=== PATIENT | male | born 1955 | race Hispanic/Latino ===

== ENCOUNTER → 2018-11-28 | Outpatient (CLI) | payer MEDICAID | END | disposition home or self-care (01) | LOC: RAH 09:40 | PROVIDERS: ATTEND Family Medicine | DX: N28.1 Cyst of kidney, acquired (principal); I70.0 Atherosclerosis of aorta | CPT/HCPCS: 76700 ==

== ENCOUNTER → 2021-04-15 | Outpatient (CLI) | payer MEDICAID | END | disposition home or self-care (01) | LOC: RAH 09:48 | PROVIDERS: ATTEND Family Medicine | DX: R91.8 Other nonspecific abnormal finding of lung field (principal); Q25.46 Tortuous aortic arch | CPT/HCPCS: 71046 ==

== ENCOUNTER 2022-01-20 08:00 | Emergency (ER) | payer MEDICAID ==
[~2022-01-20] VITALS: Ht 172.7 cm; Wt 83.5 kg
[2022-01-20 08:07] VITALS: BP 160/97
[2022-01-20] MEDS ORDERED: NAPR-1023 PO (10:24)
[2022-01-20] MEDS ORDERED: KETOROLAC 30MG VIAL (30MG/ML) ONE (10:28)
[2022-01-20] MEDS ORDERED: KETOROLAC 30MG VIAL (30MG/ML) IM ONE (10:30)
== END 2022-01-20 10:39 | disposition home or self-care (01) ==
LOC: EDH 08:00
DX: S22.32XA Fracture of one rib, left side, initial encounter for closed fracture (principal); F41.9 Anxiety disorder, unspecified; F32.A Depression, unspecified; I10 Essential (primary) hypertension; W18.09XA Striking against other object with subsequent fall, initial encounter; Y93.89 Activity, other specified; Y92.89 Other specified places as the place of occurrence of the external cause; Y99.8 Other external cause status
CPT/HCPCS: 71101; 76705; 93005; 96372; 99284; J1885

== ENCOUNTER 2022-03-16 13:08 | Emergency (ER) | payer OTHER, MEDICARE ==
[~2022-03-16] VITALS: Ht 180.3 cm; Wt 78.0 kg
[~2022-03-16 13:08] MED LIST: NAPR-1023 PO
[2022-03-16 13:48] VITALS: BP 150/85
[2022-03-16] MEDS ORDERED: KETOROLAC 60 MG VIAL (30MG/ML) IM ONE (14:00)
[2022-03-16] MEDS ORDERED: NAPR-1180 PO (14:08)
== END 2022-03-16 14:14 | disposition home or self-care (01) ==
LOC: EDH 13:08
DX: M25.562 Pain in left knee (principal); I10 Essential (primary) hypertension; F41.9 Anxiety disorder, unspecified; F32.A Depression, unspecified; E78.00 Pure hypercholesterolemia, unspecified; Z79.899 Other long term (current) drug therapy
CPT/HCPCS: 99283; 73562; 96372; J1885

== ENCOUNTER 2024-01-13 09:52 | Emergency (ER) | payer MEDICARE ==
[~2024-01-13] VITALS: Ht 167.6 cm; Wt 95.3 kg
[~2024-01-13 09:52] MED LIST changes: +NAPR-1180 PO
[2024-01-13 10:23] LABS: RAPID GROUP A STREP negative (NEGATIVE)
[2024-01-13 10:27] LABS: SARS-CoV-2, RNA, NAAT NEGATIVE SARS CoV-2 (NEGATIVE)
[2024-01-13 10:39] LABS: INFLUENZA TYPE A NEGATIVE FOR TYPE A (NEG)
[2024-01-13 10:40] LABS: INFLUENZA TYPE B NEGATIVE FOR TYPE B (NEG)
[2024-01-13 11:42] LABS: BASOPHILS # (AUTO) 0.06 K/uL (0.00-0.20); BASOPHILS % (AUTO) 0.4 % (0.0-5.0); EOSINOPHILS # (AUTO) 0.49 K/uL (0.00-0.70); EOSINOPHILS % (AUTO) 3.5 % (0.0-8.0); IMMATURE GRANULOCYTE ABSOLUTE 0.06 K/uL (0-1); LYMPHOCYTES # (AUTO) 2.8 K/uL (1.0-4.8); LYMPHOCYTES % (AUTO) 19.8 % (21.0-51.0); MEAN CORPUSCULAR HEMOGLOBIN 31.8 pg (27.0-33.0); MEAN CORPUSCULAR HGB CONC 34.7 g/dL (32.0-36.0); MEAN CORPUSCULAR VOLUME 91.8 fL (79-99); MONOCYTES # (AUTO) 1.4 K/uL (0.1-1.0); MONOCYTES % (AUTO) 9.7 % (3.0-13.0); NEUTROPHILS # (AUTO) 9.2 K/uL (1.8-7.7); NEUTROPHILS % (AUTO) 66.2 % (40.0-77.0); PLATELET COUNT (AUTO) 183 K/uL (130-400); RED BLOOD CELL COUNT(AUTO) 5.12 MIL/uL (4.50-6.20); RED CELL DISTRIBUTION WIDTH 13.6 % (11.0-15.5)
[2024-01-13 11:48] LABS: CREATININE 1.2 mg/dL (0.5-1.3); POTASSIUM 4.6 mmol/L (3.5-5.1)
[2024-01-13 12:03] LABS: B-TYPE NATRIURETIC PEPTIDE 30 pg/mL (0-100)
[2024-01-13 12:12] LABS: ADD UA MICROSCOPIC YES; APPEARANCE,URINE CLEAR (CLEAR); BILIRUBIN,URINE NEGATIVE (NEGATIVE); COLOR,URINE YELLOW (YELLOW); GLUCOSE, URINE (UA) NEGATIVE (NEGATIVE); KETONES,URINE NEGATIVE (NEGATIVE); LEUKOCYTE ESTERASE ,URINE NEGATIVE Leu/uL (NEGATIVE); NITRATE,URINE NEGATIVE (NEGATIVE); PH,URINE 5.5 (5.0-8.0); PROTEIN,URINE 10 mg/dL (NEGATIVE); UROBILINOGEN,URINE 0.2 mg/dL (0.2-1.0)
[2024-01-13] MEDS: ACETAMINOPHEN 500 MG TABLET PO ONE (12:33)
[2024-01-13 13:22] LABS: RBC,URINE None Seen /HPF (0-1); WBC,URINE None Seen /HPF (0-1)
[2024-01-13 13:23] LABS: BACTERIA,URINE None Seen /HPF (None Seen); MUCUS,URINE None Seen LPF (None Seen); SQUAMOUS EPITHELIAL CELL,UR 0-2 /HPF (0-2)
[2024-01-13] MEDS ORDERED: AZIT250T9 PO (13:42)
[2024-01-13 13:59] VITALS: BP 143/78; PULSE 90; RESP 20; O2SAT 97
[2024-01-13] MEDS ORDERED: BENZ-39 PO (14:06)
== END 2024-01-13 14:10 | disposition home or self-care (01) ==
LOC: EDH 09:52
DX: J20.9 Acute bronchitis, unspecified (principal); F41.9 Anxiety disorder, unspecified; E11.9 Type 2 diabetes mellitus without complications; I10 Essential (primary) hypertension; Z20.822 Contact with and (suspected) exposure to COVID-19
CPT/HCPCS: 36415; 71045; 80048; 81001; 83880; 84484; 85025; 87635; 87804; 87880; 93005